=== PATIENT | female | born 2000 | race Hispanic/Latino ===

== ENCOUNTER 2021-07-15 20:06 | Emergency (ER) | payer OTHER | END 2021-07-15 20:54 | disposition home or self-care (01) | LOC: BURERS 20:06 | DX: S80.01XA Contusion of right knee, initial encounter (principal); V49.50XA Passenger injured in collision with unspecified motor vehicles in traffic accident, initial encounter | CPT/HCPCS: 99283 ==

== ENCOUNTER 2021-08-27 19:35 | Emergency (ER) | payer OTHER ==
[2021-08-27] MEDS ORDERED: Amoxicillin/Potassium Clav 875 MG TAB ONE (19:56)
[2021-08-27] MEDS ORDERED: Ibuprofen 200 MG TAB ONE (19:56)
== END 2021-08-27 20:02 | disposition home or self-care (01) ==
LOC: BURERS 19:35
DX: J02.0 Streptococcal pharyngitis (principal); J01.90 Acute sinusitis, unspecified
CPT/HCPCS: 99282

== ENCOUNTER 2021-09-01 02:25 | Emergency (ER) | payer OTHER ==
[2021-09-01] MEDS ORDERED: Ondansetron ODT 4 MG TAB ONE (02:56)
== END 2021-09-01 03:10 | disposition home or self-care (01) ==
LOC: BURERS 02:25
DX: J01.90 Acute sinusitis, unspecified (principal); J02.9 Acute pharyngitis, unspecified; R11.2 Nausea with vomiting, unspecified; T36.0X5A Adverse effect of penicillins, initial encounter; T36.1X5A Adverse effect of cephalosporins and other beta-lactam antibiotics, initial encounter
CPT/HCPCS: 99283; Q0162